=== PATIENT | male | born 1985 | race Asian ===

== ENCOUNTER → 2019-07-25 | Outpatient (CLI) | payer OTHER, MEDICAID | LOC: MC.RAD 13:27 | DX: N62 Hypertrophy of breast (principal); N63.20 Unspecified lump in the left breast, unspecified quadrant ==

== ENCOUNTER 2020-11-04 09:41 | Emergency (ER) | payer BC ==
[~2020-11-04] VITALS: Ht 177.8 cm; Wt 86.4 kg
[2020-11-04 10:16] VITALS: TEMP 97.5
[2020-11-04 11:00] LABS: BASO % 0.2 % (0.0-2.0); EOS # 0.2 (0.0-0.7); EOS % 1.7 % (0-4.0); GRAN # 5.3 (1.4-6.5); GRAN % 59.1 % (42.2-75.2); HEMATOCRIT 46.6 % (42.0-52.0); HEMOGLOBIN 15.6 g/dl (13.5-18.0); LYMPH # 2.4 (1.2-3.4); LYMPH % 27.2 % (20.0-51.0); MEAN CELL VOLUME 88 fl (80.0-100.0); MEAN CORPUSCULAR HEMOGLOBIN 29 pg (27.0-31.0); MEAN CORPUSCULAR HGB CONC 34 g/dl (33.0-37.0); MEAN PLATELET VOLUME 9.3 fl (7.4-10.4); MONO % 11.6 % (1.7-9.3); PLATELET COUNT 232 K/mm3 (130-400); REDCELL DISTRIBUTION WIDTH-CV 11.9 % (11.5-14.5)
[2020-11-04 11:27] LABS: ALBUMIN 4.3 gm/dL (3.5-5.0); BILIRUBIN,TOTAL 0.6 mg/dL (0.0-1.0); C-REACTIVE PROTEIN 3.1 mg/dL (0.0-0.9); CALCIUM 8.9 mg/dL (8.4-10.2); CREATININE, serum 0.92 (0.66-1.25); POTASSIUM 4.2 mmol/L (3.4-5.0); TOTAL PROTEIN 8.4 gm/dL (6.4-8.2)
[2020-11-04 12:09] LABS: CLOSTRIDIUM DIFF A/B NEG; CLOSTRIDIUM DIFF A/B INTERP No C.diff present
[2020-11-04 12:37] VITALS: BP 107/73; PULSE 79
== END 2020-11-04 12:37 | disposition home or self-care (01) ==
LOC: COL.ER 09:41
PROVIDERS: Nurse Practitioner Primary Care
DX: K52.9 Noninfective gastroenteritis and colitis, unspecified (principal)
CPT/HCPCS: J7030